=== PATIENT | female | born 1965 | race African-American/Black ===

== ENCOUNTER 2022-01-19 13:18 | Inpatient (IN) | payer OTHER ==
[2022-01-19 14:22] VITALS: BMI 31.8
[2022-01-19] MEDS ORDERED: guaiFENesin 200 MG/10 ML 10 ML UNIT-DOSE CUPS PO PRN (16:57)
[2022-01-19] MEDS ORDERED: LOPERAMIDE HCL 2 MG CAPSULE PO PRN (16:57)
[2022-01-19] MEDS ORDERED: IBUPROFEN 400 MG TABLET (FP) PO PRN (16:57)
[2022-01-19] MEDS ORDERED: MAG HYDROX/AL HYDROX/SIMETH 30 ML UNIT-DOSE CUP PO PRN (16:57)
[2022-01-19] MEDS ORDERED: P-EPHED 60MG/TRIPROLIDI 2.5MG TABLET PO PRN (16:57)
[2022-01-19] MEDS: INSULIN SLIDING SCALE (NOVOLOG) 1 VIAL SQ SCH ×2 (20:05→23:12)
[2022-01-19] MEDS ORDERED: INSULIN (NOVOLOG) ASPART 100 UNITS/ML 10ML VIAL ONE (23:10)
[2022-01-19] MEDS: LISINOPRIL 10 MG TABLET PO SCH (23:12)
[2022-01-19] MEDS: THIAMINE HCL 100 MG TABLET (FP) PO SCH (23:12)
[2022-01-20] MEDS ORDERED: TUBERCULIN PPD 5 TU/0.1ML VIAL ID ONE (05:51)
[2022-01-20] MEDS: MAGNESIUM HYDROX 2400MG/30ML ORAL SUSPENSION 30 ML CUP PO PRN (06:29)
[2022-01-20] MEDS ORDERED: INSULIN (NOVOLOG) ASPART 100 UNITS/ML 10ML VIAL ONE ×4 (07:10→20:14)
[2022-01-20] MEDS: INSULIN SLIDING SCALE (NOVOLOG) 1 VIAL SQ SCH ×4 (07:57→21:35)
[2022-01-20] MEDS: ASPIRIN COATED 81 MG TABLET.EC PO SCH (10:18)
[2022-01-20] MEDS: PRENATAL VITAMINS W/ FOLIC ACID TABLET (FP) PO SCH (10:18)
[2022-01-20] MEDS: LISINOPRIL 10 MG TABLET PO SCH (10:18)
[2022-01-20 10:54] LABS: PH,URINE 5.5 (5.0-8.0); URINE APPEARANCE CLOUDY; URINE BILIRUBIN NEGATIVE (NEGATIVE); URINE COLOR YELLOW; URINE GLUCOSE (UA) TRACE (NEGATIVE); URINE KETONE NEGATIVE (NEGATIVE); URINE LEUK ESTERASE NEGATIVE (NEGATIVE); URINE NITRITE NEGATIVE (NEGATIVE); URINE PROTEIN NEGATIVE (NEGATIVE); URINE UROBILINOGEN 0.2 mg/dL (0.2-1.0)
[2022-01-20] MEDS: traZODone HCL 50 MG TABLET (FP) PO SCH (21:37)
[2022-01-20] MEDS: THIAMINE HCL 100 MG TABLET (FP) PO SCH (21:38)
[2022-01-20] MEDS: OLANZapine 5 MG TABLET PO SCH (21:38)
[2022-01-21] MEDS: INSULIN SLIDING SCALE (NOVOLOG) 1 VIAL SQ SCH ×4 (06:24→21:40)
[2022-01-21] MEDS: MAGNESIUM CITRATE 300 ML BOTTLE PO PRN (06:26)
[2022-01-21] MEDS ORDERED: INSULIN (NOVOLOG) ASPART 100 UNITS/ML 10ML VIAL ONE ×4 (07:34→21:37)
[2022-01-21] MEDS: PRENATAL VITAMINS W/ FOLIC ACID TABLET (FP) PO SCH (10:21)
[2022-01-21] MEDS: ESCITALOPRAM OXALATE 10 MG TABLET PO SCH (10:21)
[2022-01-21] MEDS: ASPIRIN COATED 81 MG TABLET.EC PO SCH (10:21)
[2022-01-21] MEDS: LISINOPRIL 10 MG TABLET PO SCH (10:21)
[2022-01-21] MEDS ORDERED: ALBUTEROL SO4 HFA INHALER IH PRN (11:23)
[2022-01-21] MEDS ORDERED: ASPIRIN 81 MG CHEWABLE TABLETS PO SCH (11:45)
[2022-01-21] MEDS: THIAMINE HCL 100 MG TABLET (FP) PO SCH (21:27)
[2022-01-21] MEDS: traZODone HCL 50 MG TABLET (FP) PO SCH (21:27)
[2022-01-21] MEDS: OLANZapine 5 MG TABLET PO SCH (21:27)
[2022-01-21] MEDS: MELATONIN 5 MG TABLETS PO PRN (21:28)
[2022-01-21] MEDS: NAPROXEN 500 MG TABLET PO PRN (21:34)
[2022-01-21] MEDS: hydrOXYzine PAMOATE 25 MG CAPSULE (FP) PO PRN (21:34)
[2022-01-21] MEDS: INSULIN (LEVEMIR) 100 UNITS/ML UNITS SQ SCH (21:35)
[2022-01-21] MEDS ORDERED: ROSUVASTATIN CA 40 MG TABLET PO SCH (22:00)
[2022-01-22] MEDS ORDERED: INSULIN (NOVOLOG) ASPART 100 UNITS/ML 10ML VIAL ONE ×3 (07:01→23:54)
[2022-01-22] MEDS: INSULIN SLIDING SCALE (NOVOLOG) 1 VIAL SQ SCH ×4 (07:02→21:42)
[2022-01-22] MEDS: ESCITALOPRAM OXALATE 10 MG TABLET PO SCH (10:04)
[2022-01-22] MEDS: ASPIRIN COATED 81 MG TABLET.EC PO SCH (10:04)
[2022-01-22] MEDS: HYDROCHLOROTHIAZIDE 12.5 MG CAPSULE (FP) PO SCH (10:04)
[2022-01-22] MEDS: PRENATAL VITAMINS W/ FOLIC ACID TABLET (FP) PO SCH (10:04)
[2022-01-22] MEDS: LISINOPRIL 10 MG TABLET PO SCH (10:04)
[2022-01-22] MEDS: NAPROXEN 500 MG TABLET PO PRN ×2 (11:42→21:47)
[2022-01-22] MEDS: INSULIN (LEVEMIR) 100 UNITS/ML UNITS SQ SCH (21:44)
[2022-01-22] MEDS: traZODone HCL 50 MG TABLET (FP) PO SCH (21:45)
[2022-01-22] MEDS: OLANZapine 5 MG TABLET PO SCH (21:45)
[2022-01-22] MEDS: THIAMINE HCL 100 MG TABLET (FP) PO SCH (21:45)
[2022-01-22] MEDS: ROSUVASTATIN CA 20 MG TABLET PO SCH (21:45)
[2022-01-22] MEDS ORDERED: INSULIN (LEVEMIR) 100 UNITS/ML UNITS SQ ONE (23:54)
[2022-01-23] MEDS: INSULIN SLIDING SCALE (NOVOLOG) 1 VIAL SQ SCH ×4 (07:34→22:53)
[2022-01-23] MEDS ORDERED: INSULIN (NOVOLOG) ASPART 100 UNITS/ML 10ML VIAL ONE ×4 (07:35→21:43)
[2022-01-23] MEDS: LISINOPRIL 10 MG TABLET PO SCH (10:31)
[2022-01-23] MEDS: HYDROCHLOROTHIAZIDE 12.5 MG CAPSULE (FP) PO SCH (10:31)
[2022-01-23] MEDS: ESCITALOPRAM OXALATE 10 MG TABLET PO SCH (10:31)
[2022-01-23] MEDS: ASPIRIN COATED 81 MG TABLET.EC PO SCH (10:31)
[2022-01-23] MEDS: PRENATAL VITAMINS W/ FOLIC ACID TABLET (FP) PO SCH (10:31)
[2022-01-23] MEDS: NAPROXEN 500 MG TABLET PO PRN ×2 (10:32→21:43)
[2022-01-23] MEDS: traZODone HCL 50 MG TABLET (FP) PO SCH (21:41)
[2022-01-23] MEDS: OLANZapine 5 MG TABLET PO SCH (21:41)
[2022-01-23] MEDS: THIAMINE HCL 100 MG TABLET (FP) PO SCH (21:41)
[2022-01-23] MEDS: INSULIN (LEVEMIR) 100 UNITS/ML UNITS SQ SCH (21:42)
[2022-01-23] MEDS: ROSUVASTATIN CA 20 MG TABLET PO SCH (22:33)
[2022-01-24] MEDS: INSULIN SLIDING SCALE (NOVOLOG) 1 VIAL SQ SCH ×4 (07:35→22:41)
[2022-01-24] MEDS ORDERED: INSULIN (NOVOLOG) ASPART 100 UNITS/ML 10ML VIAL ONE ×4 (07:35→23:18)
[2022-01-24] MEDS: PRENATAL VITAMINS W/ FOLIC ACID TABLET (FP) PO SCH (10:20)
[2022-01-24] MEDS: ESCITALOPRAM OXALATE 10 MG TABLET PO SCH (10:21)
[2022-01-24] MEDS: HYDROCHLOROTHIAZIDE 12.5 MG CAPSULE (FP) PO SCH (10:21)
[2022-01-24] MEDS: ASPIRIN COATED 81 MG TABLET.EC PO SCH (10:21)
[2022-01-24] MEDS: LISINOPRIL 10 MG TABLET PO SCH (10:21)
[2022-01-24] MEDS: NAPROXEN 500 MG TABLET PO PRN (10:22)
[2022-01-24] MEDS: ROSUVASTATIN CA 20 MG TABLET PO SCH (22:41)
[2022-01-24] MEDS: INSULIN (LEVEMIR) 100 UNITS/ML UNITS SQ SCH (22:41)
[2022-01-24] MEDS: traZODone HCL 50 MG TABLET (FP) PO SCH (22:41)
[2022-01-24] MEDS: OLANZapine 5 MG TABLET PO SCH (22:43)
[2022-01-24] MEDS: THIAMINE HCL 100 MG TABLET (FP) PO SCH (22:43)
[2022-01-24] MEDS: METHOCARBAMOL 500 MG TABLET PO SCH (22:43)
[2022-01-25] MEDS: INSULIN SLIDING SCALE (NOVOLOG) 1 VIAL SQ SCH ×4 (07:10→21:28)
[2022-01-25] MEDS ORDERED: INSULIN (NOVOLOG) ASPART 100 UNITS/ML 10ML VIAL ONE ×4 (07:11→22:17)
[2022-01-25] MEDS: METHOCARBAMOL 500 MG TABLET PO SCH ×2 (09:18→21:27)
[2022-01-25] MEDS: HYDROCHLOROTHIAZIDE 12.5 MG CAPSULE (FP) PO SCH (09:18)
[2022-01-25] MEDS: ASPIRIN COATED 81 MG TABLET.EC PO SCH (09:18)
[2022-01-25] MEDS: ESCITALOPRAM OXALATE 10 MG TABLET PO SCH (09:18)
[2022-01-25] MEDS: ACETAMINOPHEN 325 MG TABLET (FP) PO PRN (09:18)
[2022-01-25] MEDS: LISINOPRIL 10 MG TABLET PO SCH (09:18)
[2022-01-25] MEDS: PRENATAL VITAMINS W/ FOLIC ACID TABLET (FP) PO SCH (09:19)
[2022-01-25] MEDS: MAGNESIUM CITRATE 300 ML BOTTLE PO PRN (20:41)
[2022-01-25] MEDS: THIAMINE HCL 100 MG TABLET (FP) PO SCH (21:27)
[2022-01-25] MEDS: OLANZapine 5 MG TABLET PO SCH (21:27)
[2022-01-25] MEDS: traZODone HCL 50 MG TABLET (FP) PO SCH (21:27)
[2022-01-25] MEDS: INSULIN (LEVEMIR) 100 UNITS/ML UNITS SQ SCH (21:27)
[2022-01-25] MEDS ORDERED: INSULIN (LEVEMIR) 100 UNITS/ML UNITS SQ ONE (22:17)
[2022-01-25] MEDS: ROSUVASTATIN CA 20 MG TABLET PO SCH (22:26)
[2022-01-26] MEDS ORDERED: INSULIN (NOVOLOG) ASPART 100 UNITS/ML 10ML VIAL ONE ×3 (07:53→16:24)
[2022-01-26] MEDS: INSULIN SLIDING SCALE (NOVOLOG) 1 VIAL SQ SCH ×4 (07:55→21:10)
[2022-01-26] MEDS: ASPIRIN COATED 81 MG TABLET.EC PO SCH (10:34)
[2022-01-26] MEDS: METHOCARBAMOL 500 MG TABLET PO SCH ×2 (10:34→21:10)
[2022-01-26] MEDS: LISINOPRIL 10 MG TABLET PO SCH (10:34)
[2022-01-26] MEDS: HYDROCHLOROTHIAZIDE 12.5 MG CAPSULE (FP) PO SCH (10:34)
[2022-01-26] MEDS: ESCITALOPRAM OXALATE 10 MG TABLET PO SCH (10:34)
[2022-01-26] MEDS: PRENATAL VITAMINS W/ FOLIC ACID TABLET (FP) PO SCH (11:18)
[2022-01-26] MEDS: COLLOIDAL OATMEAL 1 BAR EACH TP PRN (18:13)
[2022-01-26] MEDS: traZODone HCL 50 MG TABLET (FP) PO SCH (21:09)
[2022-01-26] MEDS: THIAMINE HCL 100 MG TABLET (FP) PO SCH (21:10)
[2022-01-26] MEDS: INSULIN (LEVEMIR) 100 UNITS/ML UNITS SQ SCH (21:10)
[2022-01-26] MEDS: OLANZapine 5 MG TABLET PO SCH (21:10)
[2022-01-26] MEDS: ROSUVASTATIN CA 20 MG TABLET PO SCH (21:10)
[2022-01-27] MEDS ORDERED: INSULIN (NOVOLOG) ASPART 100 UNITS/ML 10ML VIAL ONE ×3 (04:14→16:56)
[2022-01-27] MEDS: INSULIN SLIDING SCALE (NOVOLOG) 1 VIAL SQ SCH ×4 (07:25→21:01)
[2022-01-27] MEDS: ESCITALOPRAM OXALATE 10 MG TABLET PO SCH (10:35)
[2022-01-27] MEDS: PRENATAL VITAMINS W/ FOLIC ACID TABLET (FP) PO SCH (10:35)
[2022-01-27] MEDS: ASPIRIN COATED 81 MG TABLET.EC PO SCH (10:35)
[2022-01-27] MEDS: LISINOPRIL 10 MG TABLET PO SCH (10:35)
[2022-01-27] MEDS: METHOCARBAMOL 500 MG TABLET PO SCH ×2 (10:35→21:02)
[2022-01-27] MEDS: HYDROCHLOROTHIAZIDE 12.5 MG CAPSULE (FP) PO SCH (10:35)
[2022-01-27] MEDS: NAPROXEN 500 MG TABLET PO PRN ×2 (10:36→21:01)
[2022-01-27] MEDS: INSULIN (LEVEMIR) 100 UNITS/ML UNITS SQ SCH (21:00)
[2022-01-27] MEDS: ROSUVASTATIN CA 20 MG TABLET PO SCH (21:00)
[2022-01-27] MEDS: traZODone HCL 50 MG TABLET (FP) PO SCH (21:01)
[2022-01-27] MEDS: OLANZapine 5 MG TABLET PO SCH (21:02)
[2022-01-27] MEDS: THIAMINE HCL 100 MG TABLET (FP) PO SCH (21:56)
[2022-01-28] MEDS: NAPROXEN 500 MG TABLET PO PRN (06:04)
[2022-01-28] MEDS ORDERED: INSULIN (NOVOLOG) ASPART 100 UNITS/ML 10ML VIAL ONE ×2 (07:25→16:38)
[2022-01-28] MEDS: INSULIN SLIDING SCALE (NOVOLOG) 1 VIAL SQ SCH ×5 (07:29→21:38)
[2022-01-28] MEDS: PRENATAL VITAMINS W/ FOLIC ACID TABLET (FP) PO SCH (10:42)
[2022-01-28] MEDS: ASPIRIN COATED 81 MG TABLET.EC PO SCH (10:42)
[2022-01-28] MEDS: LISINOPRIL 10 MG TABLET PO SCH (10:42)
[2022-01-28] MEDS: ESCITALOPRAM OXALATE 10 MG TABLET PO SCH (10:43)
[2022-01-28] MEDS: HYDROCHLOROTHIAZIDE 12.5 MG CAPSULE (FP) PO SCH (10:43)
[2022-01-28] MEDS: METHOCARBAMOL 500 MG TABLET PO SCH ×2 (10:43→21:35)
[2022-01-28] MEDS: ROSUVASTATIN CA 20 MG TABLET PO SCH (21:34)
[2022-01-28] MEDS: traZODone HCL 50 MG TABLET (FP) PO SCH (21:35)
[2022-01-28] MEDS: OLANZapine 5 MG TABLET PO SCH (21:35)
[2022-01-28] MEDS: THIAMINE HCL 100 MG TABLET (FP) PO SCH (21:35)
[2022-01-28] MEDS: MELATONIN 5 MG TABLETS PO PRN (21:35)
[2022-01-28] MEDS: INSULIN (LEVEMIR) 100 UNITS/ML UNITS SQ SCH (21:38)
[2022-01-29] MEDS ORDERED: INSULIN (NOVOLOG) ASPART 100 UNITS/ML 10ML VIAL ONE ×3 (06:02→22:08)
[2022-01-29] MEDS: INSULIN SLIDING SCALE (NOVOLOG) 1 VIAL SQ SCH ×4 (06:03→21:51)
[2022-01-29] MEDS: PRENATAL VITAMINS W/ FOLIC ACID TABLET (FP) PO SCH (10:36)
[2022-01-29] MEDS: LISINOPRIL 10 MG TABLET PO SCH (10:37)
[2022-01-29] MEDS: NAPROXEN 500 MG TABLET PO PRN ×2 (10:37→21:56)
[2022-01-29] MEDS: ESCITALOPRAM OXALATE 10 MG TABLET PO SCH (10:37)
[2022-01-29] MEDS: HYDROCHLOROTHIAZIDE 12.5 MG CAPSULE (FP) PO SCH (10:37)
[2022-01-29] MEDS: ASPIRIN COATED 81 MG TABLET.EC PO SCH (10:37)
[2022-01-29] MEDS: METHOCARBAMOL 500 MG TABLET PO SCH ×2 (10:59→21:53)
[2022-01-29] MEDS: INSULIN (LEVEMIR) 100 UNITS/ML UNITS SQ SCH (21:52)
[2022-01-29] MEDS: traZODone HCL 50 MG TABLET (FP) PO SCH (21:53)
[2022-01-29] MEDS: THIAMINE HCL 100 MG TABLET (FP) PO SCH (21:53)
[2022-01-29] MEDS: OLANZapine 5 MG TABLET PO SCH (21:53)
[2022-01-29] MEDS: ROSUVASTATIN CA 20 MG TABLET PO SCH (21:56)
[2022-01-30] MEDS ORDERED: INSULIN (NOVOLOG) ASPART 100 UNITS/ML 10ML VIAL ONE ×3 (05:25→16:18)
[2022-01-30] MEDS: INSULIN SLIDING SCALE (NOVOLOG) 1 VIAL SQ SCH ×3 (06:50→22:01)
[2022-01-30] MEDS: HYDROCHLOROTHIAZIDE 12.5 MG CAPSULE (FP) PO SCH (10:50)
[2022-01-30] MEDS: ESCITALOPRAM OXALATE 10 MG TABLET PO SCH (10:50)
[2022-01-30] MEDS: METHOCARBAMOL 500 MG TABLET PO SCH ×2 (10:51→21:57)
[2022-01-30] MEDS: LISINOPRIL 10 MG TABLET PO SCH (10:51)
[2022-01-30] MEDS: ASPIRIN COATED 81 MG TABLET.EC PO SCH (10:51)
[2022-01-30] MEDS: PRENATAL VITAMINS W/ FOLIC ACID TABLET (FP) PO SCH (10:51)
[2022-01-30] MEDS: OLANZapine 5 MG TABLET PO SCH (21:57)
[2022-01-30] MEDS: traZODone HCL 50 MG TABLET (FP) PO SCH (21:58)
[2022-01-30] MEDS: ROSUVASTATIN CA 20 MG TABLET PO SCH (21:58)
[2022-01-30] MEDS: THIAMINE HCL 100 MG TABLET (FP) PO SCH (22:01)
[2022-01-30] MEDS: INSULIN (LEVEMIR) 100 UNITS/ML UNITS SQ SCH (22:03)
[2022-01-31] MEDS ORDERED: INSULIN (NOVOLOG) ASPART 100 UNITS/ML 10ML VIAL ONE (06:52)
[2022-01-31] MEDS: INSULIN SLIDING SCALE (NOVOLOG) 1 VIAL SQ SCH ×4 (06:54→21:42)
[2022-01-31] MEDS: PRENATAL VITAMINS W/ FOLIC ACID TABLET (FP) PO SCH (10:49)
[2022-01-31] MEDS: ASPIRIN COATED 81 MG TABLET.EC PO SCH (10:49)
[2022-01-31] MEDS: ESCITALOPRAM OXALATE 10 MG TABLET PO SCH (10:49)
[2022-01-31] MEDS: METHOCARBAMOL 500 MG TABLET PO SCH ×2 (10:49→21:41)
[2022-01-31] MEDS: HYDROCHLOROTHIAZIDE 12.5 MG CAPSULE (FP) PO SCH (10:49)
[2022-01-31] MEDS: LISINOPRIL 10 MG TABLET PO SCH (10:49)
[2022-01-31] MEDS: ROSUVASTATIN CA 20 MG TABLET PO SCH (21:41)
[2022-01-31] MEDS: OLANZapine 5 MG TABLET PO SCH (21:41)
[2022-01-31] MEDS: THIAMINE HCL 100 MG TABLET (FP) PO SCH (21:41)
[2022-01-31] MEDS: traZODone HCL 50 MG TABLET (FP) PO SCH (21:41)
[2022-01-31] MEDS: INSULIN (LEVEMIR) 100 UNITS/ML UNITS SQ SCH (21:42)
[2022-02-01] MEDS ORDERED: INSULIN (NOVOLOG) ASPART 100 UNITS/ML 10ML VIAL ONE ×2 (07:07→11:49)
[2022-02-01] MEDS: INSULIN SLIDING SCALE (NOVOLOG) 1 VIAL SQ SCH ×4 (07:07→21:50)
[2022-02-01] MEDS: ASPIRIN COATED 81 MG TABLET.EC PO SCH (09:54)
[2022-02-01] MEDS: PRENATAL VITAMINS W/ FOLIC ACID TABLET (FP) PO SCH (09:55)
[2022-02-01] MEDS: ESCITALOPRAM OXALATE 10 MG TABLET PO SCH (09:55)
[2022-02-01] MEDS: METHOCARBAMOL 500 MG TABLET PO SCH ×2 (09:55→21:45)
[2022-02-01] MEDS: LISINOPRIL 10 MG TABLET PO SCH (09:55)
[2022-02-01] MEDS: HYDROCHLOROTHIAZIDE 12.5 MG CAPSULE (FP) PO SCH (09:55)
[2022-02-01] MEDS: ACETAMINOPHEN 325 MG TABLET (FP) PO PRN (11:51)
[2022-02-01] MEDS ORDERED: LIDOCAINE VISCOUS 2% ORAL/TOP 15 ML UNIT-DOSE CUP MM PRN (15:41)
[2022-02-01] MEDS: MAGNESIUM HYDROX 2400MG/30ML ORAL SUSPENSION 30 ML CUP PO PRN (16:57)
[2022-02-01] MEDS: COLLOIDAL OATMEAL 1 BAR EACH TP PRN (16:58)
[2022-02-01] MEDS: traZODone HCL 50 MG TABLET (FP) PO SCH (21:44)
[2022-02-01] MEDS: THIAMINE HCL 100 MG TABLET (FP) PO SCH (21:45)
[2022-02-01] MEDS: NAPROXEN 500 MG TABLET PO PRN (21:45)
[2022-02-01] MEDS: ROSUVASTATIN CA 20 MG TABLET PO SCH (21:45)
[2022-02-01] MEDS: OLANZapine 5 MG TABLET PO SCH (21:48)
[2022-02-01] MEDS: INSULIN (LEVEMIR) 100 UNITS/ML UNITS SQ SCH (21:49)
[2022-02-02] MEDS: MAGNESIUM CITRATE 300 ML BOTTLE PO PRN (06:17)
[2022-02-02] MEDS ORDERED: INSULIN (NOVOLOG) ASPART 100 UNITS/ML 10ML VIAL ONE (07:50)
[2022-02-02] MEDS: INSULIN SLIDING SCALE (NOVOLOG) 1 VIAL SQ SCH ×4 (07:51→21:04)
[2022-02-02] MEDS: PRENATAL VITAMINS W/ FOLIC ACID TABLET (FP) PO SCH (10:47)
[2022-02-02] MEDS: LISINOPRIL 10 MG TABLET PO SCH (10:48)
[2022-02-02] MEDS: HYDROCHLOROTHIAZIDE 12.5 MG CAPSULE (FP) PO SCH (10:48)
[2022-02-02] MEDS: METHOCARBAMOL 500 MG TABLET PO SCH ×2 (10:48→21:07)
[2022-02-02] MEDS: ESCITALOPRAM OXALATE 10 MG TABLET PO SCH (10:48)
[2022-02-02] MEDS: ASPIRIN COATED 81 MG TABLET.EC PO SCH (10:48)
[2022-02-02] MEDS: INSULIN (LEVEMIR) 100 UNITS/ML UNITS SQ SCH (21:06)
[2022-02-02] MEDS: ROSUVASTATIN CA 20 MG TABLET PO SCH (21:07)
[2022-02-02] MEDS: OLANZapine 5 MG TABLET PO SCH (21:07)
[2022-02-02] MEDS: THIAMINE HCL 100 MG TABLET (FP) PO SCH (21:07)
[2022-02-02] MEDS: traZODone HCL 50 MG TABLET (FP) PO SCH (21:07)
[2022-02-03] MEDS: hydrOXYzine PAMOATE 25 MG CAPSULE (FP) PO PRN (03:41)
[2022-02-03 07:26] VITALS: BP 160/86; PULSE 81; TEMP 97.7
[2022-02-03] MEDS: INSULIN SLIDING SCALE (NOVOLOG) 1 VIAL SQ SCH ×2 (07:41→11:28)
[2022-02-03] MEDS ORDERED: INSULIN (NOVOLOG) ASPART 100 UNITS/ML 10ML VIAL ONE ×2 (07:41→13:32)
[2022-02-03] MEDS: ASPIRIN COATED 81 MG TABLET.EC PO SCH (10:41)
[2022-02-03] MEDS: HYDROCHLOROTHIAZIDE 12.5 MG CAPSULE (FP) PO SCH (10:41)
[2022-02-03] MEDS: METHOCARBAMOL 500 MG TABLET PO SCH (10:41)
[2022-02-03] MEDS: PRENATAL VITAMINS W/ FOLIC ACID TABLET (FP) PO SCH (10:41)
[2022-02-03] MEDS: ESCITALOPRAM OXALATE 10 MG TABLET PO SCH (10:41)
[2022-02-03] MEDS: LISINOPRIL 10 MG TABLET PO SCH (10:41)
[2022-02-03] MEDS: NAPROXEN 500 MG TABLET PO PRN (10:42)
== END 2022-02-03 13:05 | disposition home or self-care (01) | DRG 772 ==
LOC: YASAS 13:18 → Y5N 22:06
PROVIDERS: ADMIT Allergy & Immunology; ATTEND Surgery
PROC: HZ42ZZZ Group Counseling for Substance Abuse Treatment, Cognitive-Behavioral (ICD-10-PCS; principal; 2022-01-19)
DX: F10.20 Alcohol dependence, uncomplicated (principal); F14.20 Cocaine dependence, uncomplicated; F17.210 Nicotine dependence, cigarettes, uncomplicated; F31.9 Bipolar disorder, unspecified; F25.9 Schizoaffective disorder, unspecified; F19.24 Other psychoactive substance dependence with psychoactive substance-induced mood disorder; F19.282 Other psychoactive substance dependence with psychoactive substance-induced sleep disorder; I10 Essential (primary) hypertension; E78.5 Hyperlipidemia, unspecified; E11.9 Type 2 diabetes mellitus without complications; J45.909 Unspecified asthma, uncomplicated; L40.9 Psoriasis, unspecified; R07.89 Other chest pain; R00.0 Tachycardia, unspecified; Z91.012 Allergy to eggs; Z91.018 Allergy to other foods; Z79.4 Long term (current) use of insulin; Z86.19 Personal history of other infectious and parasitic diseases; Z91.51 Personal history of suicidal behavior; Z56.0 Unemployment, unspecified
CPT/HCPCS: 81003; 81025; 82962; 93005; 93010; C9803-CS; U0003; U0005

== ENCOUNTER 2022-01-28 12:31 | Emergency (ER) | payer OTHER ==
[2022-01-28 13:20] VITALS: BMI 30.7
[2022-01-28 14:45] LABS: BASO % 0.6 % (0-2.0); EOS % 2.4 % (0-4.5); HEMATOCRIT 38.9 % (32.4-45.2); HEMOGLOBIN 12.7 GM/dL (10.7-15.3); LYMPH % 41.7 % (8-40); MCH 27.5 pg (25.7-33.7); MCHC 32.7 g/dl (32.0-36.0); MEAN CELL VOLUME 84.3 fl (80-96); MEAN PLT VOLUME 10.4 fl (7.5-11.1); MONO % 10.3 % (3.8-10.2); PLATELET COUNT 235 10^3/uL (134-434); RBC 4.62 M/mm3 (3.60-5.2); RDW 12.7 % (11.6-15.6); WHITE BLOOD COUNT 10.6 K/mm3 (4.0-10.0)
[2022-01-28 15:10] LABS: CALCIUM 9.7 mg/dL (8.5-10.1)
[2022-01-28 15:14] LABS: CREATININE 0.7 mg/dL (0.55-1.3)
[2022-01-28 15:15] LABS: TOT PROT 7.8 g/dl (6.4-8.2)
[2022-01-28 15:16] LABS: BILIRUBIN,TOTAL 0.3 mg/dL (0.2-1)
[2022-01-28 16:48] VITALS: BP 125/74; PULSE 78; TEMP 97.8
== END 2022-01-28 16:40 | disposition home or self-care (01) ==
LOC: JER 12:31
DX: R07.9 Chest pain, unspecified (principal)
CPT/HCPCS: 36415; 71046-TC-FY; 80053; 84484; 85025; 93005; 93010; 99285-25